=== PATIENT | female | born 1930 | race Caucasian/White ===

== ENCOUNTER 2018-11-10 08:51 | Outpatient (CLI) | payer MEDICARE, OTHER ==
--- NOTE | 2018-11-10 15:49 | Diagnostic Imaging Report ---
EMILY MINOR [facility] [id number] [facility].[address] [id number] Report Submission Date: Nov 10, 2018 2:01:12 PM CDT Patient Study Name: POLO MEDINA Date: Nov 10, 2018 9:00:15 AM CDT Modality Type: US Gender: F Description: US PELVIS LIMITED/BLADDER/F/U : [birth year] Institution: [facility] Physician: EMILY MINOR Bladder ultrasound History: Urinary incontinence Transverse and longitudinal images were obtained through the bladder. There is a large postvoid residual. Prevoid bladder volume was 271 mL and postvoid 207 mL. Otherwise, the bladder is unremarkable. Impression: Large postvoid residual as described. Electronically signed on Nov 10, 2018 2:01:12 PM CDT by: Tana CALZADA
== END 2018-11-10 08:53 ==
LOC: RAD 08:51
PROVIDERS: ATTEND Family Medicine
DX: R32 Unspecified urinary incontinence (principal)
CPT/HCPCS: 76857